=== PATIENT | female | born 1965 | race Caucasian/White ===

== ENCOUNTER → 2023-07-12 11:11 | Outpatient (REF) | payer OTHER, SELFPAY | LOC: RAD 11:11 | PROVIDERS: ATTENDING PHYSICIAN Family Medicine | DX: M25.511 Pain in right shoulder (principal) | CPT/HCPCS: 73030 ==

== ENCOUNTER 2023-07-22 07:22 | Outpatient (RCR) | payer OTHER, SELFPAY | END 2023-07-22 23:59 | disposition home or self-care (01) | LOC: RPT 07:22 | PROVIDERS: ATTENDING PHYSICIAN Family Medicine | DX: M25.511 Pain in right shoulder (principal); Z73.6 Limitation of activities due to disability | CPT/HCPCS: 97110; 97162 ==

== ENCOUNTER 2023-08-15 09:35 | Outpatient (RCR) | payer OTHER, SELFPAY | END 2023-08-15 23:59 | disposition home or self-care (01) | LOC: RPT 09:35 | PROVIDERS: ATTENDING PHYSICIAN Family Medicine | DX: M25.511 Pain in right shoulder (principal); Z73.6 Limitation of activities due to disability | CPT/HCPCS: 97010; 97110 ==

== ENCOUNTER → 2024-07-23 11:39 | Outpatient (REF) | payer OTHER, SELFPAY | LOC: WDC 11:39 | PROVIDERS: ATTENDING PHYSICIAN Obstetrics & Gynecology; FAMILY PHYSICIAN Family Medicine | DX: Z12.31 Encounter for screening mammogram for malignant neoplasm of breast (principal) | CPT/HCPCS: 77063; 77067 ==